=== PATIENT | male | born 1965 | race Caucasian/White ===

== ENCOUNTER 2021-12-19 08:17 | Emergency (ER) | payer OTHER ==
[2021-12-19] VITALS (8 sets, daily range): BP systolic 88–102; BP diastolic 53–61
[~2021-12-19] VITALS: Ht 172.7 cm; Wt 118.1 kg
[~2021-12-19 08:17] MED LIST: CIPRO500 MG OR; GENTAMICIN15 ML/BTL OP; HALDOL1 MG PO; MELOXICAM15 MG PO; PROZAC10 MG PO; RISPERDAL1 MG PO; SIMVASTATIN10 MG PO
[2021-12-19 09:02] LABS: HEMATOCRIT 32.9 % (39.0-50.0); HEMOGLOBIN 10.9 g/dl (14.0-18.0); IMMATURE GRANULOCYTES 0.3 % (0.0-5.0); MEAN CELL VOLUME 94.5 fL CALC (80.0-100.0); MEAN CORPUSCULAR HGB 31.3 pG CALC (26.0-32.0); MEAN CORPUSCULAR HGB CONC 33.1 g/dL CAL (32.0-36.0); NEUT# 10.38 thou/uL (1.82-7.42); RED BLOOD COUNT 3.48 mill/uL (4.70-6.10); RED CELL DISTRI WIDTH 12.9 % (11.5-15.5)
[2021-12-19 09:05] LABS: ALBUMIN 3.6 g/dL (3.2-5.0); ALKALINE PHOSPHATASE 83 u/l (38-126); ANION GAP 10 (6-22 (CALC)); BILIRUBIN, TOTAL 1.3 mg/dL (0.0-1.4); BUN 20 mg/dL (9-20); BUN/CREATININE RATIO 19 (12-20 (CALC)); CARBON DIOXIDE 29 mmol/l (22-30); CHLORIDE 104 mmol/l (95-108); GFR FOR AFR.AMER. > 60 ML/MIN (>=60 (CALC)); GFR OTHER RACES > 60 ML/MIN (>=60 (CALC)); POTASSIUM 3.4 mmol/l (3.5-5.1); SGOT/AST 251 u/l (17-59); SODIUM 139 mmol/l (137-146); TOTAL PROTEIN 6.6 g/dL (6.3-8.2)
[2021-12-19 09:13] LABS: URINE BLOOD DIPSTICK LARGE (NEGATIVE); URINE COLOR YELLOW; URINE GLUCOSE - DIPSTICK NEGATIVE (NEGATIVE); URINE KETONE 40 mg/dL (NEGATIVE); URINE LEUK ESTERASE NEGATIVE (NEGATIVE); URINE PROTEIN - DIPSTICK 100 mg/dL (NEG-TRACE); URINE SPECIFIC GRAVITY 1.025
[2021-12-19 09:22] LABS: URINE BILIRUBIN - DIPSTICK SMALL (NEGATIVE); URINE NITRITE - DIPSTICK NEGATIVE (Negative)
[2021-12-19 09:23] LABS: URINE EPITHELIAL CELLS FEW EPI/hpf (0-FEW); URINE MUCUS MODERATE hpf (NONE-FEW)
[2021-12-19] MEDS ORDERED: LIPITOR20 M1 PO (09:41)
[2021-12-19] MEDS ORDERED: LEVOTHYROXIN75 MCG PO (09:41)
[2021-12-19] MEDS ORDERED: BENZTROPINE0.5 MG PO (09:46)
[2021-12-19] MEDS ORDERED: OLANZAPINE10 MG PO (09:46)
[2021-12-19] MEDS ORDERED: PAROXETINE20 MG PO (09:47)
[2021-12-19] MEDS ORDERED: ZPAK PO (09:52)
[2021-12-19] MEDS ORDERED: AMOX/K CLAV875 M1 PO (09:52)
== END 2021-12-19 10:13 | disposition home or self-care (01) | DRG 195 ==
LOC: ED 08:17
PROVIDERS: Family Medicine
DX: J18.9 Pneumonia, unspecified organism (principal); I10 Essential (primary) hypertension; Z20.822 Contact with and (suspected) exposure to COVID-19

== ENCOUNTER 2021-12-22 14:02 | Inpatient (IN) | payer OTHER ==
[2021-12-22] VITALS (16 sets, daily range): BP systolic 103–158; BP diastolic 57–96
[~2021-12-22] VITALS: Ht 172.7 cm; Wt 96.5 kg
[~2021-12-22 14:02] MED LIST changes: +AMOX/K CLAV875 M1 PO; +BENZTROPINE0.5 MG PO; +LEVOTHYROXIN75 MCG PO; +LIPITOR20 M1 PO; +OLANZAPINE10 MG PO; +PAROXETINE20 MG PO; +ZPAK PO
--- NOTE | 2021-12-22 14:22 | NUR ---
PT ED RM 9, NRB, NO RESP DISTRESS
--- NOTE | 2021-12-22 14:30 | NUR ---
PT ON NRB BY EMS, CONT IN ED PER
[2021-12-22 14:53] LABS: HEMATOCRIT 34.3 % (39.0-50.0); MEAN CELL VOLUME 95.5 fL CALC (80.0-100.0); MEAN CORPUSCULAR HGB 30.6 pG CALC (26.0-32.0); MEAN CORPUSCULAR HGB CONC 32.1 g/dL CAL (32.0-36.0); NEUT# 8.11 thou/uL (1.82-7.42); RED BLOOD COUNT 3.59 mill/uL (4.70-6.10); RED CELL DISTRI WIDTH 13.1 % (11.5-15.5)
[2021-12-22 15:05] LABS: ALKALINE PHOSPHATASE 102 u/l (38-126); BUN 15 mg/dL (9-20); BUN/CREATININE RATIO 29 (12-20 (CALC)); CARBON DIOXIDE 32 mmol/l (22-30); CHLORIDE 104 mmol/l (95-108); CREATININE 0.5 mg/dL (0.7-1.3); GFR FOR AFR.AMER. > 60 ML/MIN (>=60 (CALC)); GFR OTHER RACES > 60 ML/MIN (>=60 (CALC)); SGOT/AST 64 u/l (17-59); SODIUM 143 mmol/l (137-146); TOTAL PROTEIN 7.3 g/dL (6.3-8.2)
[2021-12-22 15:09] LABS: IMMATURE GRANULOCYTES 6.3 % (0.0-5.0)
[2021-12-22 15:11] LABS: ANION GAP 11 (6-22 (CALC)); BILIRUBIN, TOTAL 0.6 mg/dL (0.0-1.4); POTASSIUM 4.3 mmol/l (3.5-5.1)
--- NOTE | 2021-12-22 16:00 | NUR ---
Reassessment of patient completed. No distress noted.
[2021-12-22] MEDS ORDERED: CEFTRIAX/DEX1 GM IV (16:41)
--- NOTE | 2021-12-22 17:45 | NUR ---
PT REARRANGED IN BED, O2 MASK ADJUSTED, NEW SPO2 SENSOR APPLIED.
--- NOTE | 2021-12-22 18:34 | NUR ---
PT ADMITTED TO MS/TELE, BEDSIDE REPORT GIVEN TO RN.
--- NOTE | 2021-12-22 18:53 | NUR ---
PT ARRIVED TO MS VIA STRETCHER, ACCOMPANIED BY ER NURSE. PT ALERT AND ORIENTED X2. GUARDS X2 AT BEDSIDE. PT ORIENTED TO ROOM AND USE OF CALL LIGHT. VS AND ASSESSMENT COMPLETED. TELEMETRY IN PLACE. O2 @ 10L NON-REBREATHER MASK. IV SITE HEALTHY AND PATENT. SAFETY PRECAUTIONS IN PLACE WITH CALL LIGHT IN REACH.
--- NOTE | 2021-12-22 22:00 | NUR ---
PT ATTEMPTED TO URINATE FOR THE 2ND TIME: BLADDER SCAN SHOWED [address] EDMOND INFORMED OF SAME. NEW ORDER FOR BLANCO PLACEMENT OBTAINED: PLACE 16F BLANCO, PT TOLERATED WELL: SPECIMEN COLLECTED AND SENT TO LAB. EMPTIED CONTENTS OF BLANCO: 1200 MLS OF CLEAR JOHNSON URINE. SAFETY PRECAUTIONS IN PLACE WITH CALL LIGHT IN REACH.
[2021-12-22 22:52] LABS: URINE BILIRUBIN - DIPSTICK NEGATIVE (NEGATIVE); URINE BLOOD DIPSTICK MODERATE (NEGATIVE); URINE COLOR YELLOW; URINE GLUCOSE - DIPSTICK NEGATIVE (NEGATIVE); URINE KETONE 15 mg/dL (NEGATIVE); URINE LEUK ESTERASE NEGATIVE (NEGATIVE); URINE PROTEIN - DIPSTICK 30 mg/dL (NEG-TRACE); URINE SPECIFIC GRAVITY >=1.030
[2021-12-22 23:03] LABS: URINE NITRITE - DIPSTICK NEGATIVE (Negative)
[2021-12-22 23:04] LABS: URINE WBC 0-2 WBC/hpf (0-5)
[2021-12-23] VITALS (31 sets, daily range): BP systolic 94–140; BP diastolic 51–84
--- NOTE | 2021-12-23 00:47 | NUR ---
PT RESTING WITH EYES CLOSED. NO DISTRESS OR PAIN NOTED. HANGING SCHEDULED ABX AT THIS TIME. PT WITH SHACKLE TO RT FOOT. BLANCO IN PLACE; TO GRAVITY WITH CLEAR, JOHNSON URINE. SAFETY PRECAUTIONS IN PLACE WITH CALL LIGHT IN REACH.
--- NOTE | 2021-12-23 01:16 | NUR ---
UPDATE GIVEN TO ARTI FROM [facility] @ 0110.
--- NOTE | 2021-12-23 04:15 | NUR ---
PT RESTING ON RIGHT SIDE WITH EYES CLOSED. NO DISTRESS OR PAIN NOTED. TELEMETRY IN PLACE. BLANCO TO GRAVITY: WITH CLEAR, JOHNSON URINE. IV SITE FLUSHED: # 22G TO LEFT HAND, HEALTHY AND PATENT. GUARDS X2 AT BEDSIDE. PT'S RIGHT ANKLE WITH SHACKLES TO BED. SAFETY PRECAUTIONS IN PLACE WITH CALL LIGHT IN REACH.
[2021-12-23 05:51] LABS: ALKALINE PHOSPHATASE 85 u/l (38-126); ANION GAP 7 (6-22 (CALC)); BILIRUBIN, TOTAL 0.6 mg/dL (0.0-1.4); BUN 14 mg/dL (9-20); BUN/CREATININE RATIO 24 (12-20 (CALC)); CALCULATED LDLCHOLESTEROL 57 mg/dL (62-129 (CALC)); CARBON DIOXIDE 38 mmol/l (22-30); CHLORIDE 104 mmol/l (95-108); CHOLESTEROL HDL RATIO 4.3 (<4.4 (CALC)); CREATININE 0.6 mg/dL (0.7-1.3); GFR FOR AFR.AMER. > 60 ML/MIN (>=60 (CALC)); GFR OTHER RACES > 60 ML/MIN (>=60 (CALC)); HDL CHOLESTEROL 23 mg/dL (>=40); POTASSIUM 4.3 mmol/l (3.5-5.1); SGOT/AST 42 u/l (17-59); SODIUM 144 mmol/l (137-146); TOTAL CHOLESTEROL 101 mg/dl (0-199); TOTAL TRIGLYCERIDES 106 mg/dl (30-149); VLDL CHOLESTROL 21 mg/dl (8-62 (CALC))
[2021-12-23 05:53] LABS: ALBUMIN 3.1 g/dL (3.2-5.0); TOTAL PROTEIN 5.7 g/dL (6.3-8.2)
--- NOTE | 2021-12-23 07:21 | NUR ---
REPORT FROM RAUL BLAIR. ASSUMED PT CARE.
--- NOTE | 2021-12-23 09:24 | NUR ---
NOTIFIED RT OF SWITCHING PT FROM NONREBREATHER TO HIGH CHRISTI OXYGEN SO PT COULD EAT BREAKFAST. PT ON 10L/M VIA HIGHFLO O2 SAT 95%. CONTINUOUS PULSE OX APPLIED AT THIS TIME. X2 GUARDS AT BEDSIDE.
--- NOTE | 2021-12-23 09:32 | NUR ---
PT. FOUND ON NRB MASK AT 10L. CHANGED TO 10L HFNC.
--- NOTE | 2021-12-23 09:44 | NUR ---
CURRENT O2 SAT 96%, WEANED DOWN TO 8L/M VIA HIGHFLOW.
--- NOTE | 2021-12-23 09:53 | NUR ---
PT MAINTAINING 97% ON 8L/M VIA HIGHFLOW NC. TITRATED DOWN SLOWLY TO 6L/M VIA HIGHFLOW.
--- NOTE | 2021-12-23 10:09 | NUR ---
DR. MCLAUGHLIN AT BEDSIDE.
--- NOTE | 2021-12-23 10:16 | NUR ---
CLINICAL SPECIALTY REP AT BEDSIDE TO COLLECT STAT LABS.
--- NOTE | 2021-12-23 10:48 | NUR ---
PT TRANSFERED TO ICU BED 1 TO BE PLACED ON BIPAP. X2 GUARDS AT BEDSIDE. REPORT GIVEN TO SALONI GREENE.
--- NOTE | 2021-12-23 15:07 | NUR ---
bipap checked 22/09 r18/21 35% bp132/68 sat 95% rr 22 pt resting comfortably
--- NOTE | 2021-12-23 16:23 | NUR ---
per nurse request removed pt from bipap placed on 4L nc sat 98% rr 20 bp134/66 respirations even and unlabored
--- NOTE | 2021-12-23 20:00 | NUR ---
PT ALERT ONLY TO SELF. REPORTS THAT HE DOES NOT KNOW WHERE HE IS, BUT WILL WAIT UNTIL IT IS TIME TO GO HOME. PT DOES NOT LOOK TO BE IN DISTRESS. PT ON 2L NC AT THIS TIME. PT STARTED TO DSAT 85% ON 4L. PT PLACED ON BIPAP. PT RESTING COMFORTABLY. VITAL SIGNS ARE WITHIN NORMAL LIMITS. OFFICERS AT BEDSIDE.
--- NOTE | 2021-12-23 22:00 | NUR ---
SHIFT REASSESSMENT - NO CHANGE IN PTS STATUS AT THIS TIME. VITAL SIGNS WITHIN NORMAL LIMITS. CALL LIGHT WITHIN REACH. OFFICERS AT BEDSIDE.
[2021-12-24] VITALS (10 sets, daily range): BP systolic 124–150; BP diastolic 61–84
--- NOTE | 2021-12-24 | NUR ---
SHIFT REASSESSMENT - RECEIVED CALL FROM THE NURSE AT THE HALF-WAY. DETAILED UPDAT PROVIDID.
--- NOTE | 2021-12-24 02:00 | NUR ---
SHIFT REASSESSMENT - PT HIGHLY RESTLESS. REFUSING TO WEAR BIPAP. BIPAP REMOVED AND RT INFORMED. PT PLACED BACK ON 4L NC. O2SAT REMAINING ABOVE 90% AT THIS TIME.
--- NOTE | 2021-12-24 04:00 | NUR ---
SHIFT REASSESSMENT - PT REMOVING HIS LEADS AND BLOOD PRESSURE CUFF. DISCUSSED MULTIPLE TIMES PURPOSE OF HAVING THESE THINGS CONNECTED TO HIS BODY. PT DOES NOT SEEM TO UNDERSTAND. PT DENIES PAIN AT THIS TIME. PT DOES NOT LOOK TO BE IN DISTRESS. REMAINS ON 4L NC AND O2SAT AT 95%. CALL LIGHT WITHIN REACH. SAFETY PRECAUTIONS IN PLACE. OFFICERS AT BEDSIDE.
[2021-12-24 05:53] LABS: HEMATOCRIT 33.2 % (39.0-50.0); HEMOGLOBIN 10.6 g/dl (14.0-18.0); MEAN CORPUSCULAR HGB 30.6 pG CALC (26.0-32.0); MEAN CORPUSCULAR HGB CONC 31.9 g/dL CAL (32.0-36.0); RED BLOOD COUNT 3.46 mill/uL (4.70-6.10); RED CELL DISTRI WIDTH 12.9 % (11.5-15.5)
--- NOTE | 2021-12-24 06:00 | NUR ---
SHIFT REASSESSMENT - PT BEING HIGHLY AGGITATED AND UNSTABLE FOR ABOUT 15 MINUTES. HE INSISTS ON WANTED TO, "GO BACK". ATTEMPTED TO REASSURE TO HELP SETTLE HIM DOWN, BUT WAS NOT SUCCESSFUL. PT BECAME EXTREMELY TACHYCARDIC IN THE 150'S. PT EVENTUALLY SETTLED DOWN AND LOOKS TO BE WATCHING TELEVISION.
[2021-12-24 06:17] LABS: ALBUMIN 3.5 g/dL (3.2-5.0); ALKALINE PHOSPHATASE 85 u/l (38-126); ANION GAP 10 (6-22 (CALC)); BILIRUBIN, TOTAL 0.7 mg/dL (0.0-1.4); BUN 25 mg/dL (9-20); BUN/CREATININE RATIO 36 (12-20 (CALC)); CARBON DIOXIDE 33 mmol/l (22-30); CHLORIDE 104 mmol/l (95-108); CREATININE 0.7 mg/dL (0.7-1.3); GFR FOR AFR.AMER. > 60 ML/MIN (>=60 (CALC)); GFR OTHER RACES > 60 ML/MIN (>=60 (CALC)); MAGNESIUM 2.8 mg/dL (1.6-2.3); SGOT/AST 35 u/l (17-59); SODIUM 142 mmol/l (137-146); TOTAL PROTEIN 6.7 g/dL (6.3-8.2)
[2021-12-24] MEDS ORDERED: OMNICEF300 MG PO (08:38)
[2021-12-24] MEDS ORDERED: ZPAK PO (08:38)
[2021-12-24] MEDS ORDERED: PREDNISONE10 MG PO (08:40)
--- NOTE | 2021-12-24 09:11 | NUR ---
O2 SAT 92% ON 4L
== END 2021-12-24 12:45 | disposition designated cancer center or children's hospital (05) | DRG 193 ==
LOC: ED 14:02 → ED-I 17:00 → ED 17:59 → MS2 18:00 → ICU 12-23 10:45
PROVIDERS: Emergency Medicine; ADMIT Internal Medicine; ATTEND Internal Medicine
PROC: 0T9B70Z Drainage of Bladder with Drainage Device, Via Natural or Artificial Opening (ICD-10-PCS; principal; 2021-12-22)
PROC: 5A09357 Assistance with Respiratory Ventilation, Less than 24 Consecutive Hours, Continuous Positive Airway Pressure (ICD-10-PCS; 2021-12-23)
DX: J18.9 Pneumonia, unspecified organism (principal); J96.01 Acute respiratory failure with hypoxia; J96.02 Acute respiratory failure with hypercapnia; J44.0 Chronic obstructive pulmonary disease with (acute) lower respiratory infection; J44.1 Chronic obstructive pulmonary disease with (acute) exacerbation; G93.49 Other encephalopathy; D86.0 Sarcoidosis of lung; I10 Essential (primary) hypertension; F32.A Depression, unspecified; E03.9 Hypothyroidism, unspecified; F79 Unspecified intellectual disabilities; E78.00 Pure hypercholesterolemia, unspecified; Z91.041 Radiographic dye allergy status; Z20.822 Contact with and (suspected) exposure to COVID-19
CPT/HCPCS: J1650